=== PATIENT | female | born 1965 | race Caucasian/White ===

== ENCOUNTER → 2016-10-15 | Outpatient (CLI) | payer BC | LOC: MC.RAD 10-11 08:40 | DX: Z12.31 Encounter for screening mammogram for malignant neoplasm of breast (principal); N64.89 Other specified disorders of breast ==

== ENCOUNTER → 2016-10-22 | Outpatient (CLI) | payer BC | LOC: MC.RAD 07:22 | DX: D24.2 Benign neoplasm of left breast (principal) ==

== ENCOUNTER → 2017-10-04 | Outpatient (CLI) | payer BC | LOC: MC.RAD 09:16 | DX: N63.24 Unspecified lump in the left breast, lower inner quadrant (principal); N64.4 Mastodynia ==

== ENCOUNTER → 2018-10-31 | Outpatient (CLI) | payer BC | LOC: MC.RAD 06:48 | DX: Z12.31 Encounter for screening mammogram for malignant neoplasm of breast (principal) ==

== ENCOUNTER → 2019-12-03 | Outpatient (CLI) | payer BC | LOC: MC.RAD 15:23 | DX: Z12.31 Encounter for screening mammogram for malignant neoplasm of breast (principal) ==

== ENCOUNTER → 2021-01-06 | Outpatient (CLI) | payer BC | LOC: MC.RAD 07:19 | DX: Z12.31 Encounter for screening mammogram for malignant neoplasm of breast (principal) ==

== ENCOUNTER → 2022-05-03 | Outpatient (CLI) | payer BC | LOC: MC.RAD 13:26 | DX: N63.20 Unspecified lump in the left breast, unspecified quadrant (principal) ==

== ENCOUNTER → 2023-04-26 | Outpatient (CLI) | payer BC | LOC: COL.RAD 08:15 → MC.RAD 08:15 → COL.RAD 08:30 | DX: Z12.31 Encounter for screening mammogram for malignant neoplasm of breast (principal) ==

== ENCOUNTER → 2024-05-04 | Outpatient (CLI) | payer BC ==
[~2024-05-04] MED LIST: IBU800 M1 PO; LIPITOR20 MG PO; NEURONTIN300 MG/CAP; NEURONTIN300 MG/CAP PO; NORCO 325 MG-51 TAB PO; PRILOSEC 20MG20 MG PO; SINGULAIR 110 MG/TAB PO; TOPAMAX 100MG100 M1 PO; VALTREX 50500 MG/TAB PO; WELLBUTRIN XL300 M1 PO; ZYRTEC 10MG10 MG PO
== END ==
LOC: MC.RAD 09:43
DX: Z12.31 Encounter for screening mammogram for malignant neoplasm of breast (principal); C50.211 Malignant neoplasm of upper-inner quadrant of right female breast